=== PATIENT | female | born 2000 | race Caucasian/White ===

== ENCOUNTER 2025-08-31 13:09 | Outpatient (REF) | payer MEDICAID, SELFPAY ==
--- OUTSIDE RECORDS SUMMARY | 2025-08-31 15:10 | XMS_ITS | Encounter Summary ---
Demographics Address [address] [facility] [address] [place] [address] Mobile Phone Email Address Preferred Language en Marital Status Unknown Adventism Affiliation Unknown Race or A laska [place] Ethnic Group Unknown Author Organization [employer] Address [address] [facility] [address] [place] [address] Care Team Providers Care Crm Consultant Name Role Phone Betina Romero MD Primary Care Provider [phone] Reason for Visit * Reason Onset Date Comments TB Test 08/26/2025 Encounter Details Date Type Department Care Team ([facility] Contact Info) Description 08/26/2025 Telephone C [facility] [address] [place] [address] Betina Romero MD [address] [place] [address] TB Test Social History Tobacco Use Types Packs/Day Years Used Date Smoking Tobacco: Never Smokeless Tobacco: Never Alcohol Answer Date Recorded Frequency of Alcohol Consumption Not on file 08/16/2023 Average Number of Drinks Not on file 023 Frequency of Binge Drinking Not on file 08/03 Score 0 08/16/2023 Depression Answer Date Recorded Patient Health Questionnaire-9 Score 0 08/16/2023 Patient Health Questionnaire-9 Score 0 08/16/2023 Last PHQ-9: Questionnaire Data Not on file 1 10/17/2022 Housing Stability Answer Date Recorded What is your housing situation today? I have manoj lemus 08/16/[address] you li ve. Do you have problems with any of the following? None of the above 08/16/2023 Food Insecurity Answer Date Recorded Within the past 12 months, y ou worried that your food would run out before you got money to buy more: Never True 08/16/2023 Within the past 12 months,th e food you bought just didn't last and you didn't have enough money to get more: Never True Transportation Answer Date Recorded In the past 12 months, has l ack of transportation kept you from medical appts, meetings, work or from getting things needed for daily living? No 08/16/2023 Utilities Answer Date Recorded In the past 12 months, has t he electric, gas, oil or water company threatened to shut off services in your home? No 08/16/2023 Depression Answer Date Recorded Patient Health Questionnaire-2 Score 0 08/16/2023 Internet Access Answer Date Recorded Internet Access Q1 Yes 05/05/2024 Internet Access Q2 Not on file 05/05/2024 Comments Unknown Sex and Gender Information Value Date Recorded Sex Assigned at Female 07/03/2022 10:31 AM EDT Legal Sex Female 10:31 AM EDT Gender Identity Female 07/03/2022 10:31 AM EDT Sexual Orientation Straight 07/03/2022 10 :31 AM EDT documented as of this encounter Miscellaneous Notes * Telephone Encounter - Janine Schultz RN - 08/26/2025 11:47 AM EST Called pt regarding request for TB testing for work, spoke to pt. Advised can do a T-Spot which is very accurate and sensitive for detection of past or present possible TB infection. Will enter orderfor the TB and let PCP know. Pt can come and do the test on Sunday when convenient. Pt understands and agrees with plan. * Telephone Encounter - Santino Hernandez - 08/26/2025 11:25 AM EST Tc from pt requesting a TB test For work Contact pt at [phone] documented in this encounter Plan of Treatment Upcoming Encounters Date Type Department Care Team (Late st Contact Info) Description 09/09/2025 10:00 AM EST Office Visit [facility] [address] [place], [place] [id number] Mohini Guillen MD [address] [place], [place] [phone] Scheduled Orders Name Type Priority Associated Diagnoses Orde r Schedule T-SPOT .TB Lab Routine Encounter for screening for respiratory tuberculosis Expected: 08/26/2025 (Approximate), Expires: 08/26/2026 documented as of this encounter Visit Diagnoses Diagnosis Encounter for screening for respiratory tuberculosis documented in this encounter Additional Health Concerns Assessment Noted Time PHQ-9 Depression Total Score: 0 08/16/20 23 4:13 PM EST documented as of this encounter Care Teams Crm Consultant Relationship Specialty Start Date End Date Betina Romero MD [address] [place] [id number] PCP - General Internal Medicine 10/18/23 documented as of this encounter
--- OUTSIDE RECORDS SUMMARY | 2025-08-31 15:11 | XMS_ITS | Encounter Summary ---
Demographics Address [address] [facility] [address] [place] [address] Mobile Phone Email Address Preferred Language en Marital Status Unknown Jewish Affiliation Unknown Race or A l[place] Ethnic Group Unknown Author Organization [employer] Address [address] [facility] [address] [address] [place] [address] Care Team Providers Care Sales Forecast Analyst Name Role Phone Mirela Garcia NP Primary Care Provider Betina Davis MD Primary Care Provider [phone] Encounter Details Date Type Department Care Team (Late st Contact Info) Description 08/01/2023 Telephone [facility] [address] [place] [address] Brit Avilez LPN Social History Tobacco Use Types Packs/Day Years Used Date Smoking Tobacco: Never Assessed Comments Unknown Sex and Gender Information Value Date Recorded Sex Assigned at Female 07/03/2022 10:31 AM EDT Legal Sex Female 10:31 AM EDT Gender Identity Female 07/03/2022 10:31 AM EDT Sexual Orientation Straight 07/03/2022 10 :31 AM EDT documented as of this encounter Plan of Treatment Upcoming Encounters Date Type Department Care Team (Late st Contact Info) Description 09/09/2025 10:00 AM EST Office Visit [facility]S [address] [place] [address] Mohini Guillen MD [address] [place] [address] documented as of this encounter Visit Diagnoses Not on filedocumented in this encounter Care Teams Sales Forecast Analyst Relationship Specialty Start Date End Date Mirela Garcia NP PCP - General Pediatrics 12/04/16 10/17/23 Betina Romero MD [address] [place] [address] PCP - General Internal Medicine 10/18/23 documented as of this encounter
--- OUTSIDE RECORDS SUMMARY | 2025-08-31 15:11 | XMS_ITS | Clinical Summary ---
Demographics Address [address] [facility] [address] [place] [address] Mobile Phone Email Address Preferred Language en Marital Status Unknown Jew Affiliation Unknown Race or A l[place] Ethnic Group Unknown Author Organization [employer] Address [address] [facility] [address] [place] [address] Care Team Providers Care Newspaper Columnist Name Role Phone Betina Romero MD Primary Care Provider [phone] Allergies No known active allergies Medications naproxen (Naprosyn) 500 MG tablet TAKE 1 TABLET BY MOUTH TWICE DAILY AFER MEAL 07/29/2023 Active methocarbamol (Robaxin) 750 MG tablet Take 1 tablet (750 mg) by mouth 3 times daily for 20 days. 30 tablet 1 08/16/2023 Active Active Problems No known active problems Encounters Date Type Department Care Team Description 08/26/[address] [facility] MED & PEDS [address] [place] [address] Betina Romero MD TB Test from Last 3 Months Immunizations Immunization Administration Dates Next Due DTaP 11/19/2006, 4,07/06/2003,03/24,01/19/2003 HPV 9-Valent 09/11/2014 HPV, Quadrivalent 06/04/2015,11/10/2014,09/11/19 15 HPV, Unspecified 06/04/2015,11/10/2014 Hep A, Unspecified 04/04/2016 Hep A, ped/adol, 2 dose 05/13/2019,04/04/2016 Hep B, Adolescent or Pediatric 07/06/2003,2002,2002 HiB, unspecified 02/24/2004,03/24/2003 Hib (HbOC) 02/24/2004,03/24/2003,01/19/2003 Hib (PRP-T) 01/19/2003 IPV 11/19/2006, 3,03/24/2003,01/19 Influenza injectable quadriv alent preservative free 08/16/2023,05/26/2021,05/30/2020 Influenza, IIV3, injectable 05/30/2020 MMR 11/19/2006,12/16/2003 Meningococcal ACWY, unspecified 09/11/2014 Meningococcal MCV4P ACYW-135 05/13/2019,09/11/19 15 Pneumococcal Conjugate PCV 13 07/06/2003, 003,01/19/2003 Tdap 03/23/2020,09/11/2014 Varicella 11/19/2006,12/16/2003 Social History Tobacco Use Types Packs/Day Years [...] Orientation Straight 07/03/2022 10 :31 AM EDT Last Filed Vital Signs Vital Sign Reading Time Taken Comments Blood Pressure 116/74 08/16/2023 3:25 PM EST Pulse 80 08/16/2023 3:25 PM EST Temperature 36.4 C (97.6 F) 08/16/2023 3:25 PM EST Respiratory Rate 20 08/16/2023 3:25 PM EST Oxygen Saturation - - Inhaled Oxygen Concentration - - Weight 71.4 kg (157 lb 6 oz) 08/16/2023 3:25 PM EST Height 163.8 cm (5' 4.5 ) 08/16/2023 3:25 PM EST Body Mass Index 26.6 08/16/2023 3:25 PM EST Plan of Treatment Upcoming Encounters Date Type Department Care Team (Late st Contact Info) Description 09/09/2025 10:00 AM EST Office Visit [facility] PEDS [address] [place] [address] Mohini Guillen MD [address] [place] [address] Health Maintenance Due Date Last Done Comments HIV Screening 2002 Disability Screening 2002 Pneumococcal Vaccine: Pediatrics (0 to 5 Years) and At-Risk Patients (6 to 49) Years (1 of 1 - PPSV23, PCV20, or PCV21) 2008 07/06/2003, 03/24/2003, 01/19/2003 Alcohol/Substance Use Screening 2014 Family Planning (PISQ) 2017 Meningococcal B Vaccine (1 of 2 - Standard) 2018 Hepatitis C Screening 2020 Pap Smear 11/19/2023 Chlamydia and Gonorrhea Screening 07/19/2024 07/19/2023, 07/19/2023, 07/19/2023 Depression Screening 08/16/2024 08/16/2023, 08/16/20 23 Tobacco Screening 08/16/2024 08/16/2023 SDOH Screening 03/03/2025 03/03/2024 COVID-19 Vaccine ( season) 2025 06/21/2021, 05/26/2021 Influenza Vaccine (#1) 2025 , 05/26/2021, 05/30/2020, Additional history exists DTaP/Tdap/Td Vaccines (8 - Td or Tdap) 03/23/2030 03/23/2020, 09/11/2014, 11/19/2006, Additional history exists Zoster Vaccines (1 of 2) 2052 RSV Patients and Patients Aged 60 years or older (1 - 1-dose 75+ series) 2077 Hepatitis B Vaccines Completed 07/06/2003, 02/03/2003, 2002 HIB Vaccines Completed 02/24/2004, 02/02, 03/24/2003, Additional history exists IPV Vaccines Completed 11/19/2006, 11/2002, 03/24/2003, Additional history exists HPV Vaccines Completed 06/04/2015, 10/2014, 11/10/2014, Additional history exists Hepatitis A Vaccines Completed 05/13/2019, 04/04/2016, 04/04/2016 Meningococcal Vaccine Completed 05/13/2019 , 09/11/2014, 09/11/2014 RSV under 20 months Aged Out No longe r eligible based on patient's age to complete this topic Rotavirus Vaccines Aged Out No longer eligible based on patient's age to complete this topic Insurance [address] [place] [address] [employer] C[employer] Care Teams Newspaper Columnist Relationship Specialty Start Date End Date Betina Romero MD [address] [place] [id number] PCP - General Internal Medicine 10/18/23
--- OUTSIDE RECORDS SUMMARY | 2025-08-31 15:11 | XMS_ITS | Clinical Summary ---
Author Organization [facility] Address [address] [place] [id number] Care Team Providers Care Instructional Technology Coach Name Role Phone Unavailable Primary Care Provider Unavailabl e Social History Tobacco Use Types Packs/Day Years Used Date Smoking Tobacco: Never Assessed Comments Unknown Sex and Gender Information Value Date Recorded Sex Assigned at Not on file Legal Sex Female 2:27 AM EST Gender Identity Not on file Sexual Orientation Not on file Plan of Treatment Health Maintenance Due Date Last Done Comments Gonorrhea/Chlamydia Screening 2002 HPV Vaccines (1 - 3-dose series) 2017 Meningococcal B Vaccine (1 o f 2 - Standard) 2018 Hepatitis A Vaccines (2 of 2 - 2-dose series) 11/11/2019 05/13/2019 DTaP,Tdap,and Td Vaccines (1 - Tdap) 2021 Hepatitis B Vaccines (1 of 3 - 19+ 3-dose series) 2021 HIV Screening 08/06/2022 Hepatitis C Screening 08/06/2022 Social Influencers of Health Screening 08/06/2022 Cervical Cancer Screening: P ap Smear 11/19/2023 Depression Screening 09/03/2024 COVID-19 Vaccine (1 - 2024-2 6 season) 2025 Influenza Vaccine (#1) 2025 RSV Immunization Adult Patie nts (1 - 1-dose 75+ series) 2077 Meningococcal ACWY Vaccine Completed 05/13/2019 HIB Vaccines Aged Out No longer eligi ble based on patient's age to complete this topic IPV Vaccines Aged Out No longer eligi ble based on patient's age to complete this topic MMR Vaccines Aged Out No longer eligi ble based on patient's age to complete this topic Pneumococcal Vaccine: Pediat rics (0 to 5 Years) and At-Risk Patients (6 to 49 Years) Aged Out No longer eligi ble based on patient's age to complete this topic RSV Immunization Patients Un mary ann 20 months Aged Out No longer eligible b ased on patient's age to complete this topic Varicella Vaccines Aged Out No longer eligible based on patient's age to complete this topic
== END 2025-08-31 13:10 | disposition home or self-care (01) ==
LOC: HO.CHCLDS 13:09
PROVIDERS: Visit Provider Pediatrics
DX: Z11.1 Encounter for screening for respiratory tuberculosis (principal)
CPT/HCPCS: 36415; 86481